=== PATIENT | male | born 1960 | race Caucasian/White ===

== ENCOUNTER 2016-11-06 11:00 | Inpatient (IN) ==
[2016-11-06] MEDS ORDERED: 0.9 % SODIUM CHLORIDE 1,000 ML IV SCH ×2 (11:15→11:30)
[2016-11-06] MEDS ORDERED: ASPIRIN 81 MG TAB.CHEW CHEWED ONE (11:17)
[2016-11-06] MEDS ORDERED: 0.9 % SODIUM CHLORIDE 500 ML IV ONE (11:21)
--- NOTE | 2016-11-06 11:29 | Emergency Department Note ---
General Adult HPI - General Chief complaint: Alcohol Stated complaint: shakiness, left sided chest pain Time Seen by Provider: 11/06/16 11:24 Source: patient, EMS Mode of arrival: ambulatory Limitations: no limitations - History of Present Illness HPI Narrative: This patient was taken to long-term last night at 830 for alcohol related problems and had a blood alcohol of 294 at that time. At 9 this morning he started complaining of left-sided chest pain and was pretty shaky. He has had alcohol withdrawal seizures in the past. Pain is left-sided without radiation without nausea shortness of breath or diaphoresis. No history of cardiac disease. Onset (ago): hour(s) Location: chest Radiation: non-radiation Severity: moderate Quality: aching Improves with: none Worsens with: none Associated symptoms: Reports: denies other symptoms Treatments Prior to Arrival: none - Related Data Home Medications Medication Instructions Recorded Confirmed Cyclobenzaprine [Flexeril] 10 mg PO DAILY 06/27/15 11/27/15 Furosemide [Lasix] 40 mg PO DAILY 06/27/15 11/27/15 Sertraline [Zoloft] 1 tab PO DAILY 06/27/15 11/27/15 traZODone HCL [Desyrel] 50 mg PO ONCE 06/27/15 11/27/15 Albuterol Sulfate [Ventolin] 2 puff INH Q4HP PRN 10/08/15 11/27/15 Spironolactone [Aldactone] 25 mg PO DAILY 10/08/15 11/27/15 Amitriptyline [Elavil] 25 mg PO HS 11/27/15 11/27/15 HYDROcodone/APAP 10/325MG [Hume 1 - 2 tab PO Q4H PRN 11/27/15 11/27/15 10/325Mg] lamoTRIgine [LaMICtal] 25 mg PO DAILY 11/27/15 11/27/15 risperiDONE [Risperidone] 1 mg PO HS 11/27/15 11/27/15 Allergies Allergy/AdvReac Type Severity Reaction Status Date / Time Bee Pollen AdvReac Intermediate Hives Verified 10/04/16 18:53 Review of Systems Constitutional: Denies: fever, chills Eyes: Denies: eye pain ENT ED: Denies: ear pain Cardiovascular: Reports: chest pain. Denies: palpitations Respiratory: Denies: cough, dyspnea Gastrointestinal: Denies: abdominal pain, nausea, vomiting Genitourinary: Denies: urgency Musculoskeletal: Denies: back pain Integumentary: Denies: rash Neurological: Denies: headache Past Medical History - Past Medical History [facility] [place] Narrative: Medical History (Last Updated 10/30/16 @ 14:24 by [employer]) Acute anxiety (Acute) Alcohol intoxication (Acute) Alcohol withdrawal seizure (Acute) Depression (Acute) Lower extremity edema (Acute) Medical clearance for incarceration (Acute) Situational anxiety (Acute) Medical history: Reports: hypertension, other (chronic pain, lower extremity edema, alcohol withdrawal seizure) Surgical history ED: Reports: orthopedic, other (2 x back surgery) Psychiatric history: Reports: anxiety, bipolar, depression - Social History Alcohol use: Reports: Heavy Drug use: Reports: none Physical Exam - General Limitations: no limitations General appearance: anxious - Head Head exam: atraumatic, normocephalic - ENT ENT exam: normal exam - Neck Neck exam: Present: normal inspection - Chest Chest inspection: Present: normal inspection - Respiratory Respiratory exam: Present: normal lung sounds bilaterally - Cardiovascular Cardiovascular exam: Present: regular rate, normal rhythm, normal heart sounds - Abdominal Exam Abdominal exam: Present: soft. Absent: distention, tenderness - Neurological Exam Neurological exam: Present: alert - Psychiatric Psychiatric exam: Present: anxious - Skin Skin exam: Present: warm, dry, intact Course Vital Signs Temperature 98.6 F 11/06/16 11:02 Pulse Rate 125 H 11/06/16 11:02 Respiratory Rate 22 11/06/16 11:02 Blood Pressure 185/103 11/06/16 11:02 Pulse Oximetry (%) 100 11/06/16 11:02 Temperature 98.6 F 11/06/16 11:02 Pulse Rate 119 H 11/06/16 14:41 Respiratory Rate 16 11/06/16 14:41 Blood Pressure 152/90 11/06/16 14:31 Pulse Oximetry (%) 97 11/06/16 14:41 Medical Decision Making - [facility] Narrative Medical decision making narrative: This patient's troponin was negative to 6 hours after the onset of his pain. He really seems to be having impending DTs. Discussed the case with Dr. Matamoros and he will be admitted to a telemetry bed. - Lab Data Lab results reviewed: Yes I reviewed the patient's lab results. Result diagrams: 11/06/16 11:19 11/06/16 11:19 Lab Results 11/06/16 11/06/16 11/06/16 Range/Units 11:19 11:19 11:19 WBC 6.4 (4.5-11.0) K/mcL RBC 3.79 L (4.50-5.90) M/mcL Hgb 12.6 L (13.5-16.5) g/dL Hct 37.6 L (41.0-55.0) % MCV 99.3 (80.0-100.0) fL MCH 33.4 (26.0-34.0) pg MCHC 33.6 (31.0-36.0) g/dL RDW 15.4 H (11.5-14.5) % Plt Count 201 (140-440) K/mcL MPV 7.7 (7.4-10.4) fL Gran % 77.2 (38.0-78.0) % Lymph % (Auto) 9.2 L (15.5-49.0) % [place] % (Auto) 13.2 H (1.0-12.0) % Eos % (Auto) 0.2 (0.0-7.0) % Baso % (Auto) 0.2 (0.0-2.0) % Gran # 4.9 (1.8-8.0) K/mcL Lymph # 0.6 L (1.5-4.8) K/mcL [place] # 0.8 (0.1-0.9) K/mcL Eos # 0 (0.0-0.7) K/mcL Baso # 0 (0.0-0.3) K/mcL Sodium 140 (133-145) mmol/L Potassium 4.4 (3.3-5.1) mmol/L Chloride 99 (96-108) mmol/L Carbon Dioxide 25 (22-30) mmol/L Anion Gap 16.0 (8-16) BUN 4 L (6-20) mg/dl Creatinine 0.7 (0.7-1.2) mg/dl GFR Calculation 105 Glucose 96 (70-105) mg/dL Calcium 9.1 (8.6-10.4) mg/dl Total Bilirubin 0.8 (0.0-1.0) mg/dL AST 108 H (0-37) U/l ALT 71 H (0-40) U/l Alkaline Phosphatase 77 (39-117) U/L Troponin T (0-0.03) ng/ml Total Protein 6.9 (5.9-8.4) gm/dL Albumin 4.3 (3.2-5.2) gm/dL Globulin 2.6 (2.2-3.7) gm/dL Albumin/Globulin Ratio 1.7 (1.0-2.3) Ethyl Alcohol < 0.010 (<0.010) gm/dl 11/06/16 11/06/16 Range/Units 11:19 14:05 WBC (4.5-11.0) K/mcL RBC (4.50-5.90) M/mcL Hgb (13.5-16.5) g/dL Hct (41.0-55.0) % MCV (80.0-100.0) fL MCH (26.0-34.0) pg MCHC (31.0-36.0) g/dL RDW (11.5-14.5) % Plt Count (140-440) K/mcL MPV (7.4-10.4) fL Gran % (38.0-78.0) % Lymph % (Auto) (15.5-49.0) % [place] % (Auto) (1.0-12.0) % Eos % (Auto) (0.0-7.0) % Baso % (Auto) (0.0-2.0) % Gran # (1.8-8.0) K/mcL Lymph # (1.5-4.8) K/mcL [place] # (0.1-0.9) K/mcL Eos # (0.0-0.7) K/mcL Baso # (0.0-0.3) K/mcL Sodium (133-145) mmol/L Potassium (3.3-5.1) mmol/L Chloride (96-108) mmol/L Carbon Dioxide (22-30) mmol/L Anion Gap (8-16) BUN (6-20) mg/dl Creatinine (0.7-1.2) mg/dl GFR Calculation Glucose (70-105) mg/dL Calcium (8.6-10.4) mg/dl Total Bilirubin (0.0-1.0) mg/dL AST (0-37) U/l ALT (0-40) U/l Alkaline Phosphatase (39-117) U/L Troponin T < 0.01 < 0.01 (0-0.03) ng/ml Total Protein (5.9-8.4) gm/dL Albumin (3.2-5.2) gm/dL Globulin (2.2-3.7) gm/dL Albumin/Globulin Ratio (1.0-2.3) Ethyl Alcohol (<0.010) gm/dl - Radiology Data Radiology results reviewed: Yes I reviewed the patient's radiology results. Disposition Clinical Impression: Alcohol withdrawal syndrome, Chest pain Disposition: Xfer As Outpt/Obs ([facility]) Condition: Fair Referrals: Meagan Pickering MD [Primary Care Provider] - Time of Disposition: 15:08
[2016-11-06] MEDS ORDERED: LORazepam 2 MG/ML VIAL IM ONE (11:30)
[2016-11-06] MEDS ORDERED: 0.9 % SODIUM CHLORIDE 1,000 ML IV ONE (11:38)
[2016-11-06] MEDS ORDERED: LORazepam 2 MG/ML VIAL IV ONE (11:39)
[2016-11-06 11:56] LABS: Basophils # (Auto) 0 K/mcL (0.0-0.3); Basophils % (Auto) 0.2 % (0.0-2.0); Eosinophils # (Auto) 0 K/mcL (0.0-0.7); Eosinophils % (Auto) 0.2 % (0.0-7.0); Granulocytes % (Auto) 77.2 % (38.0-78.0); Lymphocytes # (Auto) 0.6 K/mcL (1.5-4.8); Lymphocytes % (Auto) 9.2 % (15.5-49.0); Mean Cell Volume 99.3 fL (80.0-100.0); Mean Corpuscular HGB Conc 33.6 g/dL (31.0-36.0); Mean Corpuscular Hemoglobin 33.4 pg (26.0-34.0); Monocytes # (Auto) 0.8 K/mcL (0.1-0.9); Monocytes % (Auto) 13.2 % (1.0-12.0); Platelet Count 201 K/mcL (140-440); RBC 3.79 M/mcL (4.50-5.90); Red Cell Distribution Width 15.4 % (11.5-14.5)
--- NOTE | 2016-11-06 12:03 | XRay Report ---
CLINICAL INFORMATION: Chest pain COMPARISON: 06/27/2015 FINDINGS:The heart size, mediastinum and pulmonary vessels are unremarkable. The lungs are clear. There are no effusions. The bones and soft tissues are within normal limits. IMPRESSION: Normal chest. Interpreted and Authenticated by: Fabrizio Aguero 11/06/16
[2016-11-06 12:34] LABS: ALT/SGPT 71 U/l (0-40); Albumin 4.3 gm/dL (3.2-5.2); Albumin/Globulin Ratio 1.7 (1.0-2.3); Alkaline Phosphatase 77 U/L (39-117); Blood Urea Nitrogen 4 mg/dl (6-20)
--- NOTE | 2016-11-06 16:06 | Internal Med History&Physical ---
Medical - H&P: HPI Patient information: Note initiated : 11/06/16 at 4:02 pm Service Date, if different from initiated Date: [] Patient: Manjeet Angelo a 56 y/o M admitted on for shakiness, left sided chest pain. Chief Complaint: [] History of present illness: Mr. Angelo is a 56 year old male who comes in to the ER with left sided chest pain. The patient has h/o alcoholism, heavy drinker, drinks 12 pack a day and then a pint of whiskey. Drinks daily, and if does not drink goes in withdrawal, has h/ o withdrawal seizuers in the past. The patient has been to this ER 4 times in the last month for alcohol related issues. He was arrested last for etoh intoxication, likely DUI, This AM he started having chest pain on the left side, pain was moderate in nature, sharp, non radiating, worse with movement and stress, better with rest , The patient also had sweating, dry heaves and shortness of breath. he was therefore brought in for evaluation. In the ER he was noted to be tachycardic, CXR neg, Trop x 2 neg, ekg is negative , he was shaky and noted to be in early DT, Hospitalist was therefore called in for admission for DT given h/o DT seizures. The patient on questioning noted that he may have fallen and did indeed have a burise on the left arm as well as some bruse on the left side of the chest wall which seems to be the source of his pain. X ray does not report any Rib fracture. patient will be admitted to the hospital for alcohol withdrawal, given that he is incarcerated and high risk of going to DT All systems: reviewed and no additional remarkable complaints except as stated Review of systems: CONSTITUTIONAL: No weight loss, fever, chills, weakness or fatigue. HEENT: Eyes: No visual loss, blurred vision, double vision or yellow sclerae. Ears, Nose, Throat: No hearing loss, sneezing, congestion, runny nose or sore throat. SKIN: No rash or itching. CARDIOVASCULAR: present chest pain,NO chest pressure . No palpitations or edema. (usually does have chr edema) RESPIRATORY: chr cough, sob present, no hemotpytis, GASTROINTESTINAL: Present nausea, No vomiting or diarrhea or constipation. No abdominal pain or blood in stools No Becky. GENITOURINARY: Denies Burning on urination. Blood in urine, or foul smelling urine NEUROLOGICAL: No headache, dizziness, syncope, paralysis, (tremors present), numbness or tingling in the extremities. No change in bowel or bladder control. MUSCULOSKELETAL: No muscle, joint pain or stiffness. Present chr back pain HEMATOLOGIC: No bleeding or bruising. No enlarged nodes PSYCHIATRIC: No depression or anxiety. ENDOCRINOLOGIC: No reports of sweating, cold or heat intolerance. No polyuria or polydipsia. ALLERGIES: No hives, eczema or rhinitis. Skin: No rash, no jaundice, cyanosis or pallor. Skin: bruise 4x6 cms on the left arm, and on the irregular bruise on the left chest wall. Medical - H&P: PMH Medical history: Medical History (Last Updated 11/06/16 @ 15:09 by Dylan Corbett MD) Lower extremity edema (Acute) Situational anxiety (Acute) Depression (Acute) Acute anxiety (Acute) Alcohol intoxication (Acute) Alcohol withdrawal seizure (Acute) Medical clearance for incarceration (Acute) Surgical history: back surgery Pertinent family history: Mother with Etoh issues no h/o cad, cva or MO reported. Social history: drinks eoth, heavy smoker thc user denies other substances. Medical - H&P: Meds Home Medications Medication Instructions Recorded Confirmed Type Furosemide [Lasix] 40 mg PO DAILY 06/27/15 11/27/15 History Albuterol Sulfate [Ventolin] 2 puff INH Q4HP PRN 10/08/15 11/27/15 History Spironolactone [Aldactone] 25 mg PO DAILY 10/08/15 11/06/16 History HYDROcodone/APAP 10/325MG [Amalia 1 - 2 tab PO Q4H PRN 11/27/15 11/27/15 History 10/325Mg] Allergies Allergy/AdvReac Type Severity Reaction Status Date / Time Bee Pollen AdvReac Intermediate Hives Verified 10/04/16 18:53 Medical - H&P: Exam - Constitutional Vitals: Temp Pulse Resp BP Pulse Ox 98.6 F 121 H 14 173/108 98 11/06/16 11:02 11/06/16 15:31 11/06/16 15:31 11/06/16 15:31 11/06/16 15:31 Exam: GENERAL: The patient is a well-developed, well-nourished in no apparent distress. Is alert and oriented x3. appears older than stated age VITAL SIGNS: Reviewed and as noted elsewhere. HEENT: Head is normocephalic and atraumatic. Extraocular muscles are intact. Pupils are equal, round, and reactive to light. Nares appeared normal. Mouth appears any without lesions. Mucous membranes are moist. NECK: Normal to inspection, Supple, No lymphadenopathy or thyromegaly. LUNGS: Air entry equal on both sides, no wheezing, crackles or rhonchi noted. No accessory muscles of respiration HEART: tachycardic rate, and rhythm normal, S1 and S2 heard, no Gallop, S3 or Rub Noted, No Gross murmur heard. Chest wall: burise noted irregular diffuse on left side over precordium, tender to palpation. ABDOMEN: Soft, nontender, and nondistended. Positive bowel sounds. No hepatosplenomegaly was noted. EXTREMITIES: No cyanosis, clubbing, rash, lesions or edema. NEUROLOGIC: Cranial nerves II through XII are grossly intact. Motor and Sensory System Grossly Intact PSYCHIATRIC: Normal affect, Normal Mood. Appropriate Behavior. SKIN: No ulceration or wounds noted, No jaundice, No rash noted. LEft arm bruise noted. Medical - H&P: Reslt - Labs CBC & Chem 7: 11/06/16 11:19 11/06/16 11:19 Labs: Short CBC 11/06/16 Range/Units 11:19 WBC 6.4 (4.5-11.0) K/mcL Hgb 12.6 L (13.5-16.5) g/dL Hct 37.6 L (41.0-55.0) % Plt Count 201 (140-440) K/mcL BMP 11/06/16 11:19 Sodium 140 Potassium 4.4 Chloride 99 Carbon Dioxide 25 BUN 4 L Creatinine 0.7 Glucose 96 Calcium 9.1 Cardiac Enzymes 11/06/16 11/06/16 Range/Units 11:19 14:05 Troponin T < 0.01 < 0.01 (0-0.03) ng/ml Liver Function 11/06/16 Range/Units 11:19 Total Bilirubin 0.8 (0.0-1.0) mg/dL AST 108 H (0-37) U/l ALT 71 H (0-40) U/l Alkaline Phosphatase 77 (39-117) U/L Albumin 4.3 (3.2-5.2) gm/dL Medical - H&P: A/P - Narrative A/P Narrative: a/p Alcohol withdrawal: Given pt is incarcerated and high risk of DT, admit to hospital. CIWA protocol, banana today, IV fluids, ativan prn, IV thiamine, MV and folic acid. Monitor on telemetery. fall and seizure risk Chest pain: EKG trop, cXR neg, h/o trauma with obvious burise, and tenderness to palpation, no need for further workup, conservative management. Chr edema: Resume home meds' DVT hep sq Diet Regular Code full
[2016-11-06] MEDS ORDERED: ONDANSETRON 4 MG/2 ML VIAL IV PRN (16:28)
[2016-11-06] MEDS ORDERED: PROMETHAZINE 25 MG/ML VIAL IV PRN (16:28)
[2016-11-06] MEDS ORDERED: HYDROcodone/APAP 5/325MG TABLET PO PRN (16:28)
[2016-11-06] MEDS ORDERED: HALOPERIDOL LACTATE 5 MG/ML VIAL IM PRN (16:28)
[2016-11-06] MEDS ORDERED: IPRATROPIUM/ALBUTEROL 3 ML AMPUL.NEB NEB PRN (16:28)
[2016-11-06] MEDS ORDERED: MAGNESIUM HYDROXIDE 30 ML ORAL.SUSP PO PRN (16:28)
[2016-11-06] MEDS ORDERED: DEXTROSE 5%-1/2NS W/10MEQ KCL 1,000 ML IV SCH (16:28)
[2016-11-06] MEDS ORDERED: NALOXONE HCL 0.4 MG/ML VIAL IV PRN (16:28)
[2016-11-06] MEDS: cloNIDine HCL 0.1 MG TABLET PO PRN (16:54)
[2016-11-06] MEDS ORDERED: POTASSIUM CHLORIDE 20 MEQ, MAGNESIUM SULFATE 16.24 MEQ, THIAMINE 100 MG, MVI, ADULT NO.... IV SCH (17:00)
[2016-11-06] MEDS: METOPROLOL TARTRATE 5 MG/5 ML VIAL IV SCH ×3 (18:07→19:56)
[2016-11-06 18:46] LABS: Amphetamine Screen,Urine NONE DETECTED (NONDETECTED); Benzodiazepines Screen,Urine SUSPECT POSITIVE (NONDETECTED); Cocaine Screen,Urine NONE DETECTED (NONDETECTED); Opiate Screen,Urine NONE DETECTED (NONDETECTED)
[2016-11-06] MEDS: 0.9 % SODIUM CHLORIDE 10 ML SYRINGE IV SCH (20:58)
[2016-11-06] MEDS: FAMOTIDINE/PF 20 MG/2 ML VIAL IV SCH (20:58)
[2016-11-06] MEDS: HEPARIN 5,000 UNIT/ML VIAL SQ SCH (20:58)
[2016-11-06] MEDS: LORazepam 2 MG/ML VIAL IV PRN (21:03)
[2016-11-07] MEDS: DEXTROSE 5%-1/2NS W/10MEQ KCL 1,000 ML IV SCH ×2 (01:36→13:49)
[2016-11-07] MEDS: LORazepam 2 MG/ML VIAL IV PRN ×5 (04:10→21:18)
[2016-11-07] MEDS: 0.9 % SODIUM CHLORIDE 10 ML SYRINGE IV SCH ×3 (05:32→21:20)
[2016-11-07 06:08] LABS: Basophils # (Auto) 0 K/mcL (0.0-0.3); Basophils % (Auto) 0.4 % (0.0-2.0); Eosinophils # (Auto) 0.1 K/mcL (0.0-0.7); Eosinophils % (Auto) 1.9 % (0.0-7.0); Granulocytes % (Auto) 65.4 % (38.0-78.0); Lymphocytes % (Auto) 19.8 % (15.5-49.0); Mean Cell Volume 99.8 fL (80.0-100.0); Mean Corpuscular HGB Conc 33.8 g/dL (31.0-36.0); Mean Corpuscular Hemoglobin 33.7 pg (26.0-34.0); Monocytes # (Auto) 0.6 K/mcL (0.1-0.9); Monocytes % (Auto) 12.5 % (1.0-12.0); Platelet Count 153 K/mcL (140-440); RBC 3.31 M/mcL (4.50-5.90); Red Cell Distribution Width 15.3 % (11.5-14.5)
[2016-11-07 06:27] LABS: ALT/SGPT 51 U/l (0-40); Albumin 3.6 gm/dL (3.2-5.2); Albumin/Globulin Ratio 1.7 (1.0-2.3); Alkaline Phosphatase 62 U/L (39-117); Bilirubin,Direct 0.2 mg/dL (0.0-0.3); Blood Urea Nitrogen 6 mg/dl (6-20); Gamma Glutamyl Transpeptidase 128 U/L (8-61); Magnesium 1.9 mg/dL (1.6-2.5); Uric Acid 3.8 mg/dL (2.5-8.0)
[2016-11-07] MEDS: SPIRONOLACTONE 25 MG TABLET PO SCH (09:08)
[2016-11-07] MEDS: FAMOTIDINE/PF 20 MG/2 ML VIAL IV SCH ×2 (09:09→21:21)
[2016-11-07] MEDS: FOLIC ACID 1 MG TABLET PO SCH (09:09)
[2016-11-07] MEDS: HEPARIN 5,000 UNIT/ML VIAL SQ SCH ×2 (09:09→21:21)
[2016-11-07] MEDS: NICOTINE 21 MG PATCH TOPICAL SCH (09:09)
[2016-11-07] MEDS: THIAMINE 100 MG in 0.9 % SODIUM CHLORIDE 50 ML IV SCH (09:10)
[2016-11-07] MEDS: MULTIVIT,THER IRON,CA,FA & MIN 1 TABLET PO SCH (09:10)
[2016-11-07] MEDS: FUROSEMIDE 40 MG TABLET PO SCH (09:10)
--- NOTE | 2016-11-07 11:59 | Internal Med Progress Note ---
Medical - PN: Subj Patient information: Note initiated : 11/07/16 at 11:57 am Service Date, if different from initiated Date: [] Patient: Manjeet Angelo 56 y/o M admitted on 11/06/16 for Shakiness, Lt Sided Chest Pain/Alcohol Withdrawal. Chief Complaint: [] Interval history: Mr. Angelo is a 56 year old male who comes in to the ER with left sided chest pain. The patient has h/o alcoholism, heavy drinker, drinks 12 pack a day and then a pint of whiskey. Drinks daily, and if does not drink goes in withdrawal, has h/ o withdrawal seizuers in the past. The patient has been to this ER 4 times in the last month for alcohol related issues. He was arrested last for etoh intoxication, likely DUI, This AM he started having chest pain on the left side, pain was moderate in nature, sharp, non radiating, worse with movement and stress, better with rest , The patient also had sweating, dry heaves and shortness of breath. he was therefore brought in for evaluation. In the ER he was noted to be tachycardic, CXR neg, Trop x 2 neg, ekg is negative , he was shaky and noted to be in early DT, Hospitalist was therefore called in for admission for DT given h/o DT seizures. The patient on questioning noted that he may have fallen and did indeed have a burise on the left arm as well as some bruse on the left side of the chest wall which seems to be the source of his pain. X ray does not report any Rib fracture. patient will be admitted to the hospital for alcohol withdrawal, given that he is incarcerated and high risk of going to DT 11/07 Pt seen examined, doing much better, no new concerns, CIWA still > 10, needing ativan, HR much better, tremors much better, no longer incarcerated. will continue to monitor. Pt not keen on drinking again. Pertinent ROS: Denies headache, dizziness Denies chest pain, palpitations (chest soreness present) Denies cough or shortness of breath. (chr smokers cough present) Denies abdominal pain, nausea or vomiting. - Constitutional Vitals: Vital Signs Temp Pulse Resp BP Pulse Ox 98.8 F 103 H 20 146/84 93 11/07/16 08:00 11/06/16 20:00 11/07/16 08:00 11/07/16 08:00 11/07/16 08:00 Period Temp Pulse Resp BP Sys/Romero Pulse Ox Last 24 Hr 98.5 F-99.5 F 102-119 16-22 111-177/67-136 93-99 Intake and Output 11/06/16 11/07/16 11/07/16 21:59 05:59 13:59 Intake Total 600 / 1600 1225 / 1225 120 / 120 Output Total 1050 / 1050 700 / 700 2300 / 2300 Balance -450 / 550 525 / 525 -2180 / -2180 Weight 159 lb 3.2 oz Intake & Output: Intake & Output 11/06/16 11/07/16 11/07/16 21:59 05:59 13:59 Intake Total 600 / 1600 1225 / 1225 120 / 120 Output Total 1050 / 1050 700 / 700 2300 / 2300 Balance -450 / 550 525 / 525 -2180 / -2180 Weight 159 lb 3.2 oz Intake: IV 1025 / 1025 Potassium Chloride 20 Meq 1025 / 1025 Magnesium Sulfate 16.24 Meq Vitamin B1 100 mg Infuvite Adult 10 ml In Sodium Chloride 0.9% 1, 000 ml @ 125 mls/hr IV . Q8H12M [facility] Rx#:[id number] Oral 600 / 600 200 / 200 120 / 120 Output: Urine Catheter Amount 300 / 300 Void Amount 1050 / 1050 700 / 700 1600 / 1600 Stool 400 / 400 Other: Meal Dinner Breakfast Percent of Meal Consumed 75% 100% # Bowel Movements 1 1 # of times incontinent of 1 Bowels Exam: Constitutional; Afebrile, cooperative, alert, not in distress. Eyes- No icterus, , No periorbital swelling Ears- Ext ear normal, hearing normal to conversation. Neck- Midline trachea, supple Respiratory system: Air Entry equal on both sides, No crackles or wheezing, no rhonchi. CVS- Rate rhythm regular, S1,S2 heard, no gallop, no rub. Abdomen- Soft nontender abdomen, no organomegaly, no tenderness, no guarding or rigidity, FI[employer]GER- AOOx3, moving all extremities, no gross focal deficit noted. Medical - PN: Obj Da - Labs CBC & Chem 7: 11/07/16 03:54 11/07/16 03:54 Labs: Abnormal Lab Results 11/07/16 11/07/16 11/06/16 03:54 03:54 17:37 RBC 3.31 L Hgb 11.1 L Hct 33.0 L RDW 15.3 H [place] % (Auto) 12.5 H Lymph # 1.0 L Creatinine 0.6 L Calcium 8.4 L GGT 128 H AST 66 H ALT 51 H Total Protein 5.7 L Globulin 2.1 L U Benzodiazepines Scrn Suspect positive A Meds: Medications Acetaminophen (Tylenol) 650 mg PO Q6HP PRN PRN Reason: PAIN/FEVER > 101 Acetaminophen/Hydrocodone Bitart ([place] 5/325mg) 1 tab PO Q4HP PRN PRN Reason: Pain Albuterol/Ipratropium (Duoneb) 3 ml NEB Q6HRT PRN PRN Reason: Shortness Of Breath Or Wheezing Clonidine HCl (Catapres) 0.1 mg PO Q4HP PRN PRN Reason: Alcohol Withdrawal Last Admin: 11/06/16 16:54 Dose: 0.1 mg Famotidine (Pepcid) 20 mg IV Q12 [facility] Last Admin: 11/07/16 09:09 Dose: 20 mg Folic Acid (Folic Acid) 1 mg PO DAILY [facility] Last Admin: 11/07/16 09:09 Dose: 1 mg Furosemide (Lasix) 40 mg PO DAILY [facility] Last Admin: 11/07/16 09:10 Dose: 40 mg Haloperidol Lactate (Haldol) 0.5 mg IM Q2HP PRN PRN Reason: Alcohol Withdrawal Heparin Sodium (Porcine) (Heparin) 5,000 unit SQ Q12 [facility] Last Admin: 11/07/16 09:09 Dose: 5,000 unit Thiamine HCl 100 mg/ Sodium (Chloride) 51 mls @ 50 mls/hr IV DAILY [facility] Last Admin: 11/07/16 09:10 Dose: 50 mls/hr Potassium Chloride/Dextrose/Sod Cl (Dextrose 5%-1/2ns W/10meq Kcl) 1,000 mls @ 75 mls/hr IV .[id number] [facility] Last Admin: 11/07/16 01:36 Dose: 75 mls/hr Iron Carb/Multivit/[place]/Folic Acid (Multivitamin W/Minerals) 1 tab PO DAILY [facility] Last Admin: 11/07/16 09:10 Dose: 1 tab Lorazepam (Ativan) 1 mg IV Q4HP PRN; Protocol PRN Reason: Alcohol Withdrawal Last Admin: 11/07/16 09:08 Dose: 1 mg Magnesium Hydroxide (Milk Of Magnesia) 30 ml PO DAILYP PRN PRN Reason: Constipation Naloxone HCl (Narcan) 0.1 mg IV Q2MIN PRN PRN Reason: Opiate Reversal Nicotine (Nicoderm) 21 mg TOPICAL DAILY@1000 [facility] Last Admin: 11/07/16 09:09 Dose: 21 mg Ondansetron HCl (Zofran) 4 mg IV Q4HP PRN PRN Reason: Nausea And Vomiting Promethazine HCl (Phenergan) 12.5 mg IV Q6HP PRN PRN Reason: Nausea And Vomiting Sodium Chloride (Saline Flush) 10 ml IV Q8 [facility] Last Admin: 11/07/16 05:32 Dose: Not Given Spironolactone (Aldactone) 25 mg PO DAILY [facility] Last Admin: 11/07/16 09:08 Dose: 25 mg Medical - PN: A/P - Time Spent With Patient Total time spent is greater than 50% in coordination of care (as documented) at patient's floor/unit and/or counseling patient: - Narrative A/P Narrative: a/p Alcohol withdrawal: high risk for DT, h/o DT seizures, continue to monitor, ativan prn, IV thiamine, MV folic acid. fall and seizure precautions. PT eval , OT eval Chest pain: EKG trop, CXR neg, h/o trauma with obvious bruise, and tenderness to palpation, no need for further workup, conservative management. Chr edema: Resume home meds DVT hep sq Diet Regular Code full Medical - PN: Qual - VTE Deep Vein Thrombosis/Pulmonary Embolism Present on Admission: No
[2016-11-08] MEDS: DEXTROSE 5%-1/2NS W/10MEQ KCL 1,000 ML IV SCH ×2 (03:09→21:06)
[2016-11-08] MEDS: 0.9 % SODIUM CHLORIDE 10 ML SYRINGE IV SCH ×3 (04:59→21:56)
[2016-11-08 05:40] LABS: Basophils # (Auto) 0 K/mcL (0.0-0.3); Basophils % (Auto) 0.5 % (0.0-2.0); Eosinophils # (Auto) 0.2 K/mcL (0.0-0.7); Eosinophils % (Auto) 3.3 % (0.0-7.0); Granulocytes % (Auto) 59.6 % (38.0-78.0); Lymphocytes # (Auto) 1.5 K/mcL (1.5-4.8); Lymphocytes % (Auto) 28.1 % (15.5-49.0); Mean Cell Volume 99.5 fL (80.0-100.0); Mean Corpuscular Hemoglobin 33.8 pg (26.0-34.0); Monocytes # (Auto) 0.4 K/mcL (0.1-0.9); Monocytes % (Auto) 8.5 % (1.0-12.0); Platelet Count 157 K/mcL (140-440); RBC 3.58 M/mcL (4.50-5.90)
[2016-11-08 06:04] LABS: ALT/SGPT 61 U/l (0-40); Albumin 3.9 gm/dL (3.2-5.2); Albumin/Globulin Ratio 1.6 (1.0-2.3); Alkaline Phosphatase 64 U/L (39-117); Bilirubin,Direct 0.2 mg/dL (0.0-0.3); Blood Urea Nitrogen 9 mg/dl (6-20); Gamma Glutamyl Transpeptidase 129 U/L (8-61); Magnesium 1.4 mg/dL (1.6-2.5); Uric Acid 4.1 mg/dL (2.5-8.0)
[2016-11-08] MEDS: LORazepam 2 MG/ML VIAL IV PRN ×2 (07:17→21:58)
[2016-11-08] MEDS ORDERED: MAGNESIUM SULFATE 2 GM/50 ML BAG IV ONE (07:30)
[2016-11-08] MEDS: FUROSEMIDE 40 MG TABLET PO SCH (09:04)
[2016-11-08] MEDS: SPIRONOLACTONE 25 MG TABLET PO SCH (09:04)
[2016-11-08] MEDS: FOLIC ACID 1 MG TABLET PO SCH (09:04)
[2016-11-08] MEDS: NICOTINE 21 MG PATCH TOPICAL SCH (09:04)
[2016-11-08] MEDS: FAMOTIDINE/PF 20 MG/2 ML VIAL IV SCH ×2 (09:04→21:06)
[2016-11-08] MEDS: MULTIVIT,THER IRON,CA,FA & MIN 1 TABLET PO SCH (09:04)
[2016-11-08] MEDS: HEPARIN 5,000 UNIT/ML VIAL SQ SCH ×2 (09:04→21:06)
[2016-11-08] MEDS: THIAMINE 100 MG in 0.9 % SODIUM CHLORIDE 50 ML IV SCH (09:05)
--- NOTE | 2016-11-08 10:09 | Internal Med Progress Note ---
Medical - PN: Subj Patient information: Note initiated : 11/08/16 at 10:06 am Service Date, if different from initiated Date: [] Patient: Manjeet Angelo a 56 y/o M admitted on 11/06/16 for Shakiness, Lt Sided Chest Pain/Alcohol Withdrawal. Chief Complaint: [] Interval history: Mr. Angelo is a 56 year old male who comes in to the ER with left sided chest pain. The patient has h/o alcoholism, heavy drinker, drinks 12 pack a day and then a pint of whiskey. Drinks daily, and if does not drink goes in withdrawal, has h/ o withdrawal seizuers in the past. The patient has been to this ER 4 times in the last month for alcohol related issues. He was arrested last for etoh intoxication, likely DUI, This AM he started having chest pain on the left side, pain was moderate in nature, sharp, non radiating, worse with movement and stress, better with rest , The patient also had sweating, dry heaves and shortness of breath. he was therefore brought in for evaluation. In the ER he was noted to be tachycardic, CXR neg, Trop x 2 neg, ekg is negative , he was shaky and noted to be in early DT, Hospitalist was therefore called in for admission for DT given h/o DT seizures. The patient on questioning noted that he may have fallen and did indeed have a burise on the left arm as well as some bruse on the left side of the chest wall which seems to be the source of his pain. X ray does not report any Rib fracture. patient will be admitted to the hospital for alcohol withdrawal, given that he is incarcerated and high risk of going to DT 11/07 Pt seen examined, doing much better, no new concerns, CIWA still > 10, needing ativan, HR much better, tremors much better, no longer incarcerated. will continue to monitor. Pt not keen on drinking again. 11/08: Pt seen examined, did not sleep well, His CIWA is worse today am around 17 , today is day 3 without etoh, and we should start to see improvement by the end of the day, He has good appetitite, and some tremors, but otherwise st able. MG low ,will replace. Pertinent ROS: Present headaches, chr, No syncope, dizziness. Denies chest pain, palpitations (chest soreness present) Denies cough or shortness of breath Denies abdominal pain, nausea or vomiting. - Constitutional Vitals: Vital Signs Temp Pulse Resp BP Pulse Ox 98.3 F 98 H 18 149/94 95 11/08/16 06:57 11/07/16 20:00 11/08/16 06:57 11/08/16 06:57 11/08/16 06:57 Period Temp Pulse Resp BP Sys/Romero Pulse Ox Last 24 Hr 98.0 F-99.1 F 88-98 16-18 105-153/72-94 95-100 Intake and Output 11/07/16 11/08/16 11/08/16 21:59 05:59 13:59 Intake Total 351 / 351 1300 / 1300 Output Total 400 / 400 1800 / 1800 350 / 350 Balance -49 / -49 -500 / -500 -350 / -350 Weight 159 lb Intake & Output: Intake & Output 11/07/16 11/08/16 11/08/16 21:59 05:59 13:59 Intake Total 351 / 351 1300 / 1300 Output Total 400 / 400 1800 / 1800 350 / 350 Balance -49 / -49 -500 / -500 -350 / -350 Weight 159 lb Intake: IV 51 / 51 1000 / 1000 Dextrose 5%-1/2Ns W/10Meq 1000 / 1000 KCl 1,000 ml @ 75 mls/hr IV .[id number] [facility] Rx#: [id number] Vitamin B1 100 mg In 51 / 51 Sodium Chloride 0.9% 50 ml @ 50 mls/hr IV DAILY [facility] Rx#:[id number] Oral 300 / 300 300 / 300 Output: Void Amount 400 / 400 1800 / 1800 350 / 350 Other: # Voids 1 # Bowel Movements 1 Exam: Constitutional; Afebrile, cooperative, alert, not in distress. Eyes- No icterus, , No periorbital swelling Ears- Ext ear normal, hearing normal to conversation. Neck- Midline trachea, supple Respiratory system: Air Entry equal on both sides, No crackles or wheezing, no rhonchi. CVS- Rate rhythm regular, S1,S2 heard, no gallop, no rub. Abdomen- Soft nontender abdomen, no organomegaly, no tenderness, no guarding or rigidity, SHRIMP CLEANER- AOOx2, moving all extremities, no gross focal deficit noted. naida tremors present, mild hand tremors present. Medical - PN: Obj Da - Labs CBC & Chem 7: 11/08/16 04:30 11/08/16 04:30 Labs: Abnormal Lab Results 11/08/16 11/08/16 11/07/16 04:30 04:30 03:54 RBC 3.58 L Hgb 12.1 L Hct 35.6 L RDW 15.0 H Yell % (Auto) Lymph # Creatinine 0.6 L Calcium 8.4 L Magnesium 1.4 L GGT 129 H 128 H AST 84 H 66 H ALT 61 H 51 H Lactate Dehydrogenase 256 H Total Protein 5.7 L Globulin 2.1 L U Benzodiazepines Scrn 11/07/16 11/06/16 03:54 17:37 RBC 3.31 L Hgb 11.1 L Hct 33.0 L RDW 15.3 H Yell % (Auto) 12.5 H Lymph # 1.0 L Creatinine Calcium Magnesium GGT AST ALT Lactate Dehydrogenase Total Protein Globulin U Benzodiazepines Scrn Suspect positive A Meds: Medications Acetaminophen (Tylenol) 650 mg PO Q6HP PRN PRN Reason: PAIN/FEVER > 101 Acetaminophen/Hydrocodone Bitart ([place] 5/325mg) 1 tab PO Q4HP PRN PRN Reason: Pain Last Admin: 11/07/16 14:45 Dose: 1 tab Albuterol/Ipratropium (Duoneb) 3 ml NEB Q6HRT PRN PRN Reason: Shortness Of Breath Or Wheezing Clonidine HCl (Catapres) 0.1 mg PO Q4HP PRN PRN Reason: Alcohol Withdrawal Last Admin: 11/06/16 16:54 Dose: 0.1 mg Famotidine (Pepcid) 20 mg IV Q12 [facility] Last Admin: 11/08/16 09:04 Dose: 20 mg Folic Acid (Folic Acid) 1 mg PO DAILY [facility] Last Admin: 11/08/16 09:04 Dose: 1 mg Furosemide (Lasix) 40 mg PO DAILY [facility] Last Admin: 11/08/16 09:04 Dose: 40 mg Haloperidol Lactate (Haldol) 0.5 mg IM Q2HP PRN PRN Reason: Alcohol Withdrawal Heparin Sodium (Porcine) (Heparin) 5,000 unit SQ Q12 [facility] Last Admin: 11/08/16 09:04 Dose: 5,000 unit Thiamine HCl 100 mg/ Sodium (Chloride) 51 mls @ 50 mls/hr IV DAILY [facility] Last Admin: 11/08/16 09:05 Dose: 50 mls/hr Potassium Chloride/Dextrose/Sod Cl (Dextrose 5%-1/2ns W/10meq Kcl) 1,000 mls @ 75 mls/hr IV .[id number] [facility] Last Admin: 11/08/16 03:09 Dose: 75 mls/hr Iron Carb/Multivit/[place]/Folic Acid (Multivitamin W/Minerals) 1 tab PO DAILY [facility] Last Admin: 11/08/16 09:04 Dose: 1 tab Lorazepam (Ativan) 1 mg IV Q4HP PRN; Protocol PRN Reason: Alcohol Withdrawal Last Admin: 11/08/16 07:17 Dose: 1 mg Magnesium Hydroxide (Milk Of Magnesia) 30 ml PO DAILYP PRN PRN Reason: Constipation Naloxone HCl (Narcan) 0.1 mg IV Q2MIN PRN PRN Reason: Opiate Reversal Nicotine (Nicoderm) 21 mg TOPICAL DAILY@1000 [facility] Last Admin: 11/08/16 09:04 Dose: 21 mg Ondansetron HCl (Zofran) 4 mg IV Q4HP PRN PRN Reason: Nausea And Vomiting Promethazine HCl (Phenergan) 12.5 mg IV Q6HP PRN PRN Reason: Nausea And Vomiting Sodium Chloride (Saline Flush) 10 ml IV Q8 [facility] Last Admin: 11/08/16 04:59 Dose: Not Given Spironolactone (Aldactone) 25 mg PO DAILY [facility] Last Admin: 11/08/16 09:04 Dose: 25 mg Medical - PN: A/P - Time Spent With Patient Total time spent is greater than 50% in coordination of care (as documented) at patient's floor/unit and/or counseling patient: - Narrative A/P Narrative: a/p Alcohol withdrawal: high risk for DT, h/o DT seizures, continue to monitor, ativan prn, IV thiamine, MV folic acid. fall and seizure precautions, appreciate OT/PT eval. CIWA score 17 this am, remains on ativan. Chest pain: EKG trop, CXR neg, h/o trauma with obvious bruise, and tenderness to palpation, no need for further workup, conservative management. Chr edema: on home diuretics Hypomagnesemia: Replace. DVT hep sq Diet Regular Code full Medical - PN: Qual - VTE Deep Vein Thrombosis/Pulmonary Embolism Present on Admission: No
[2016-11-08] MEDS ORDERED: 0.9 % SODIUM CHLORIDE 1,000 ML IV ONE (10:49)
[2016-11-08] MEDS: ACETAMINOPHEN 325 MG TABLET PO PRN (19:00)
[2016-11-08] MEDS: cloNIDine HCL 0.1 MG TABLET PO PRN (19:01)
[2016-11-09 05:50] LABS: Basophils # (Auto) 0.1 K/mcL (0.0-0.3); Basophils % (Auto) 0.9 % (0.0-2.0); Eosinophils # (Auto) 0.2 K/mcL (0.0-0.7); Eosinophils % (Auto) 2.6 % (0.0-7.0); Granulocytes % (Auto) 68.3 % (38.0-78.0); Lymphocytes # (Auto) 1.1 K/mcL (1.5-4.8); Lymphocytes % (Auto) 18.8 % (15.5-49.0); Mean Cell Volume 99.3 fL (80.0-100.0); Mean Corpuscular HGB Conc 34.2 g/dL (31.0-36.0); Monocytes # (Auto) 0.6 K/mcL (0.1-0.9); Monocytes % (Auto) 9.4 % (1.0-12.0); Platelet Count 134 K/mcL (140-440); RBC 3.35 M/mcL (4.50-5.90); Red Cell Distribution Width 14.4 % (11.5-14.5)
[2016-11-09 06:09] LABS: ALT/SGPT 50 U/l (0-40); Albumin 3.7 gm/dL (3.2-5.2); Albumin/Globulin Ratio 1.6 (1.0-2.3); Alkaline Phosphatase 59 U/L (39-117); Bilirubin,Direct < 0.2 mg/dL (0.0-0.3); Blood Urea Nitrogen 15 mg/dl (6-20); Gamma Glutamyl Transpeptidase 112 U/L (8-61); Magnesium 1.5 mg/dL (1.6-2.5); Uric Acid 4.2 mg/dL (2.5-8.0)
[2016-11-09] MEDS ORDERED: MAGNESIUM SULFATE 2 GM/50 ML BAG IV ONE (08:28)
[2016-11-09] MEDS: SPIRONOLACTONE 25 MG TABLET PO SCH (09:02)
[2016-11-09] MEDS: ACETAMINOPHEN 325 MG TABLET PO PRN ×2 (09:02→15:11)
[2016-11-09] MEDS: THIAMINE 100 MG in 0.9 % SODIUM CHLORIDE 50 ML IV SCH (09:02)
[2016-11-09] MEDS: HEPARIN 5,000 UNIT/ML VIAL SQ SCH ×2 (09:02→20:59)
[2016-11-09] MEDS: MULTIVIT,THER IRON,CA,FA & MIN 1 TABLET PO SCH (09:02)
[2016-11-09] MEDS: FAMOTIDINE/PF 20 MG/2 ML VIAL IV SCH ×2 (09:02→21:00)
[2016-11-09] MEDS: LORazepam 2 MG/ML VIAL IV PRN ×4 (09:13→21:57)
[2016-11-09] MEDS: NICOTINE 21 MG PATCH TOPICAL SCH (09:34)
[2016-11-09] MEDS: 0.9 % SODIUM CHLORIDE 10 ML SYRINGE IV SCH ×3 (10:40→21:00)
[2016-11-09] MEDS: FOLIC ACID 1 MG TABLET PO SCH (10:45)
[2016-11-09] MEDS: FUROSEMIDE 40 MG TABLET PO SCH (10:48)
--- NOTE | 2016-11-09 11:09 | Internal Med Progress Note ---
Medical - PN: Subj Patient information: Note initiated : 11/09/16 at 11:07 am Service Date, if different from initiated Date: [] Patient: Manjeet Angelo a 56 y/o M admitted on 11/06/16 for Shakiness, Lt Sided Chest Pain/Alcohol Withdrawal. Chief Complaint: [] Interval history: Mr. Angelo is a 56 year old male who comes in to the ER with left sided chest pain. The patient has h/o alcoholism, heavy drinker, drinks 12 pack a day and then a pint of whiskey. Drinks daily, and if does not drink goes in withdrawal, has h/ o withdrawal seizuers in the past. The patient has been to this ER 4 times in the last month for alcohol related issues. He was arrested last for etoh intoxication, likely DUI, This AM he started having chest pain on the left side, pain was moderate in nature, sharp, non radiating, worse with movement and stress, better with rest , The patient also had sweating, dry heaves and shortness of breath. he was therefore brought in for evaluation. In the ER he was noted to be tachycardic, CXR neg, Trop x 2 neg, ekg is negative , he was shaky and noted to be in early DT, Hospitalist was therefore called in for admission for DT given h/o DT seizures. The patient on questioning noted that he may have fallen and did indeed have a burise on the left arm as well as some bruse on the left side of the chest wall which seems to be the source of his pain. X ray does not report any Rib fracture. patient will be admitted to the hospital for alcohol withdrawal, given that he is incarcerated and high risk of going to DT 11/07 Pt seen examined, doing much better, no new concerns, CIWA still > 10, needing ativan, HR much better, tremors much better, no longer incarcerated. will continue to monitor. Pt not keen on drinking again. 11/08: Pt seen examined, did not sleep well, His CIWA is worse today am around 17 , today is day 3 without etoh, and we should start to see improvement by the end of the day, He has good appetitite, and some tremors, but otherwise st able. MG low ,will replace. 11/09: Pt seen examined, no acute overnight events, CIWA is tending down, but still has intermittent tremors, he is weak, overnight his score was 12-4-3, but was high again this AM at 7 and 9, He will be transferred to med surg floor, continue with conservative management, expect d/c to home vs rehab in AM Pt is tolerating po diet well and has no acute complaints. Mental status is better, Pertinent ROS: Denies headache, dizziness Denies chest pain, palpitations (chest soreness) Denies cough or shortness of breath Denies abdominal pain, nausea or vomiting. - Constitutional Vitals: Vital Signs Temp Pulse Resp BP Pulse Ox 97.8 F 81 20 137/78 97 11/09/16 09:02 11/09/16 08:00 11/09/16 08:00 11/09/16 03:32 11/09/16 08:00 Period Temp Pulse Resp BP Sys/Romero Pulse Ox Last 24 Hr 97.8 F-98.7 F 78-81 14-20 137-152/78-96 94-99 Intake and Output 11/08/16 11/09/16 11/09/16 21:59 05:59 13:59 Intake Total 1720 / 1720 661 / 661 Output Total 1075 / 1075 200 / 200 750 / 750 Balance 645 / 645 -200 / -200 -89 / -89 Weight 164 lb 8 oz Intake & Output: Intake & Output 11/08/16 11/09/16 11/09/16 21:59 05:59 13:59 Intake Total 1720 / 1720 661 / 661 Output Total 1075 / 1075 200 / 200 750 / 750 Balance 645 / 645 -200 / -200 -89 / -89 Weight 164 lb 8 oz Intake: IV 1000 / 1000 101 / 101 Dextrose 5%-1/2Ns W/10Meq 1000 / 1000 KCl 1,000 ml @ 75 mls/hr IV .[id number] [facility] Rx#: [id number] Vitamin B1 100 mg In 51 / 51 Sodium Chloride 0.9% 50 ml @ 50 mls/hr IV DAILY [facility] Rx#:[id number] Oral 720 / 720 560 / 560 Output: Void Amount 825 / 825 200 / 200 750 / 750 Urine/Stool Mix 250 / 250 Other: Meal Dinner Breakfast Percent of Meal Consumed 100% 75% Feeding Ability Independent # Voids 1 1 # Bowel Movements 1 Exam: Constitutional; Afebrile, cooperative, alert, not in distress. Eyes- No icterus, , No periorbital swelling Ears- Ext ear normal, hearing normal to conversation. Neck- Midline trachea, supple Respiratory system: Air Entry equal on both sides, No crackles or wheezing, no rhonchi. CVS- Rate rhythm regular, S1,S2 heard, no gallop, no rub. Abdomen- Soft nontender abdomen, no organomegaly, no tenderness, no guarding or rigidity, BABYSITTER- AOOx3, moving all extremities, no gross focal deficit noted. (mild tremors present) Medical - PN: Obj Da - Labs CBC & Chem 7: 11/09/16 04:22 11/09/16 04:22 Labs: Abnormal Lab Results 11/09/16 11/09/16 11/08/16 04:22 04:22 04:30 RBC 3.35 L Hgb 11.4 L Hct 33.3 L RDW Plt Count 134 L [place] % (Auto) Lymph # 1.1 L Potassium 3.2 L Creatinine Calcium 8.5 L Magnesium 1.5 L 1.4 L GGT 112 H 129 H AST 51 H 84 H ALT 50 H 61 H Lactate Dehydrogenase 256 H Total Protein Globulin U Benzodiazepines Scrn 11/08/16 11/07/16 11/07/16 04:30 03:54 03:54 RBC 3.58 L 3.31 L Hgb 12.1 L 11.1 L Hct 35.6 L 33.0 L RDW 15.0 H 15.3 H Plt Count [place] % (Auto) 12.5 H Lymph # 1.0 L Potassium Creatinine 0.6 L Calcium 8.4 L Magnesium GGT 128 H AST 66 H ALT 51 H Lactate Dehydrogenase Total Protein 5.7 L Globulin 2.1 L U Benzodiazepines Scrn 11/06/16 17:37 RBC Hgb Hct RDW Plt Count [place] % (Auto) Lymph # Potassium Creatinine Calcium Magnesium GGT AST ALT Lactate Dehydrogenase Total Protein Globulin U Benzodiazepines Scrn Suspect positive A Meds: Medications Acetaminophen (Tylenol) 650 mg PO Q6HP PRN PRN Reason: PAIN/FEVER > 101 Last Admin: 11/09/16 09:02 Dose: 650 mg Acetaminophen/Hydrocodone Bitart ([place] 5/325mg) 1 tab PO Q4HP PRN PRN Reason: Pain Last Admin: 11/07/16 14:45 Dose: 1 tab Albuterol/Ipratropium (Duoneb) 3 ml NEB Q6HRT PRN PRN Reason: Shortness Of Breath Or Wheezing Clonidine HCl (Catapres) 0.1 mg PO Q4HP PRN PRN Reason: Alcohol Withdrawal Last Admin: 11/08/16 19:01 Dose: 0.1 mg Famotidine (Pepcid) 20 mg IV Q12 [facility] Last Admin: 11/09/16 09:02 Dose: 20 mg Folic Acid (Folic Acid) 1 mg PO DAILY [facility] Last Admin: 11/09/16 10:45 Dose: 1 mg Furosemide (Lasix) 40 mg PO DAILY [facility] Last Admin: 11/09/16 10:48 Dose: 40 mg Haloperidol Lactate (Haldol) 0.5 mg IM Q2HP PRN PRN Reason: Alcohol Withdrawal Heparin Sodium (Porcine) (Heparin) 5,000 unit SQ Q12 [facility] Last Admin: 11/09/16 09:02 Dose: 5,000 unit Thiamine HCl 100 mg/ Sodium (Chloride) 51 mls @ 50 mls/hr IV DAILY [facility] Last Infusion: 11/09/16 10:43 Dose: Infused Potassium Chloride/Dextrose/Sod Cl (Dextrose 5%-1/2ns W/10meq Kcl) 1,000 mls @ 75 mls/hr IV .[id number] [facility] Last Admin: 11/08/16 21:06 Dose: 75 mls/hr Iron Carb/Multivit/Upholstery Trimmer/Folic Acid (Multivitamin W/Minerals) 1 tab PO DAILY [facility] Last Admin: 11/09/16 09:02 Dose: 1 tab Lorazepam (Ativan) 1 mg IV Q4HP PRN; Protocol PRN Reason: Alcohol Withdrawal Last Admin: 11/09/16 09:13 Dose: 1 mg Magnesium Hydroxide (Milk Of Magnesia) 30 ml PO DAILYP PRN PRN Reason: Constipation Naloxone HCl (Narcan) 0.1 mg IV Q2MIN PRN PRN Reason: Opiate Reversal Nicotine (Nicoderm) 21 mg TOPICAL DAILY@1000 [facility] Last Admin: 11/09/16 09:34 Dose: 21 mg Ondansetron HCl (Zofran) 4 mg IV Q4HP PRN PRN Reason: Nausea And Vomiting Potassium Chloride (Klor-Con) 20 meq PO BIDCC [facility] Stop: 11/10/16 08:01 Promethazine HCl (Phenergan) 12.5 mg IV Q6HP PRN PRN Reason: Nausea And Vomiting Sodium Chloride (Saline Flush) 10 ml IV Q8 [facility] Last Admin: 11/09/16 10:40 Dose: Not Given Spironolactone (Aldactone) 25 mg PO DAILY [facility] Last Admin: 11/09/16 09:02 Dose: 25 mg Medical - PN: A/P - Time Spent With Patient Total time spent is greater than 50% in coordination of care (as documented) at patient's floor/unit and/or counseling patient: - Narrative A/P Narrative: a/p Alcohol withdrawal: high risk for DT, h/o DT seizures, continue to monitor, ativan prn, IV thiamine, MV folic acid. fall and seizure precautions, appreciate OT/PT eval. CIWA score 9 this AM, seems to improving , anticipate D/ c Tomorrow. Chest pain: EKG trop, CXR neg, h/o trauma with obvious bruise, and tenderness to palpation, no need for further workup, conservative management. Chr edema: on home diuretics Hypomagnesemia: Replace. DVT hep sq Diet Regular Code full Medical - PN: Qual - VTE Deep Vein Thrombosis/Pulmonary Embolism Present on Admission: No
[2016-11-09] MEDS: DEXTROSE 5%-1/2NS W/10MEQ KCL 1,000 ML IV SCH ×2 (12:06→15:44)
[2016-11-09] MEDS ORDERED: IPRATROPIUM/ALBUTEROL 3 ML AMPUL.NEB NEB PRN (15:33)
[2016-11-09] MEDS ORDERED: ACETAMINOPHEN 325 MG TABLET PO PRN (15:33)
[2016-11-09] MEDS ORDERED: PROMETHAZINE 25 MG/ML VIAL IV PRN (15:33)
[2016-11-09] MEDS ORDERED: NALOXONE HCL 0.4 MG/ML VIAL IV PRN (15:33)
[2016-11-09] MEDS ORDERED: HALOPERIDOL LACTATE 5 MG/ML VIAL IM PRN (15:33)
[2016-11-09] MEDS ORDERED: cloNIDine HCL 0.1 MG TABLET PO PRN (15:33)
[2016-11-09] MEDS ORDERED: MAGNESIUM HYDROXIDE 30 ML ORAL.SUSP PO PRN (15:33)
[2016-11-09] MEDS ORDERED: HYDROcodone/APAP 5/325MG TABLET PO PRN (15:33)
[2016-11-09] MEDS ORDERED: ONDANSETRON 4 MG/2 ML VIAL IV PRN (15:33)
[2016-11-09] MEDS: POTASSIUM CHLORIDE 20 MEQ PACKET PO SCH (17:05)
[2016-11-09] MEDS ORDERED: POTASSIUM CHLORIDE 20 MEQ PACKET PO SCH (17:30)
[2016-11-10] MEDS: DEXTROSE 5%-1/2NS W/10MEQ KCL 1,000 ML IV SCH ×2 (00:43→05:31)
[2016-11-10] MEDS: LORazepam 2 MG/ML VIAL IV PRN (04:45)
[2016-11-10] MEDS: 0.9 % SODIUM CHLORIDE 10 ML SYRINGE IV SCH (05:31)
[2016-11-10 06:38] LABS: Basophils # (Auto) 0.1 K/mcL (0.0-0.3); Basophils % (Auto) 0.9 % (0.0-2.0); Eosinophils # (Auto) 0.2 K/mcL (0.0-0.7); Granulocytes % (Auto) 66.5 % (38.0-78.0); Lymphocytes % (Auto) 16.1 % (15.5-49.0); Mean Cell Volume 99.4 fL (80.0-100.0); Mean Corpuscular HGB Conc 33.9 g/dL (31.0-36.0); Mean Corpuscular Hemoglobin 33.7 pg (26.0-34.0); Monocytes # (Auto) 0.8 K/mcL (0.1-0.9); Monocytes % (Auto) 13.5 % (1.0-12.0); Platelet Count 151 K/mcL (140-440); RBC 3.22 M/mcL (4.50-5.90); Red Cell Distribution Width 14.8 % (11.5-14.5)
[2016-11-10 07:03] LABS: ALT/SGPT 46 U/l (0-40); Albumin 3.5 gm/dL (3.2-5.2); Albumin/Globulin Ratio 1.5 (1.0-2.3); Alkaline Phosphatase 51 U/L (39-117); Bilirubin,Direct < 0.2 mg/dL (0.0-0.3); Blood Urea Nitrogen 16 mg/dl (6-20); Gamma Glutamyl Transpeptidase 101 U/L (8-61); Magnesium 1.6 mg/dL (1.6-2.5); Uric Acid 4.4 mg/dL (2.5-8.0)
[2016-11-10] MEDS: POTASSIUM CHLORIDE 20 MEQ PACKET PO SCH (08:28)
[2016-11-10] MEDS: HEPARIN 5,000 UNIT/ML VIAL SQ SCH (08:28)
[2016-11-10] MEDS: FAMOTIDINE/PF 20 MG/2 ML VIAL IV SCH (08:29)
[2016-11-10] MEDS ORDERED: FUROSEMIDE 40 MG TABLET PO SCH (09:00)
[2016-11-10] MEDS ORDERED: SPIRONOLACTONE 25 MG TABLET PO SCH (09:00)
[2016-11-10] MEDS ORDERED: THIAMINE 100 MG in 0.9 % SODIUM CHLORIDE 50 ML IV SCH (09:00)
[2016-11-10] MEDS ORDERED: MULTIVIT,THER IRON,CA,FA & MIN 1 TABLET PO SCH (09:00)
[2016-11-10] MEDS ORDERED: FOLIC ACID 1 MG TABLET PO SCH (09:00)
[2016-11-10] MEDS ORDERED: NICOTINE 21 MG PATCH TOPICAL SCH (10:00)
--- NOTE | 2016-11-10 14:41 | Discharge Summary ---
Medical - DS: Prov Patient information: Note initiated : 11/10/16 at 2:34 pm Service Date, if different from initiated Date: [] Patient: Manjeet Angelo 56 y/o M admitted on 11/06/16 for Shakiness, Lt Sided Chest Pain/Alcohol Withdrawal. Chief Complaint: [] Date of admission: 11/06/16 16:25 Discharge date: 11/10/16 Primary care physician: Meagan Pickering -telephone #[phone] Admitting clinician: Analy [place] Attending physician on discharge: Vianca Chadwick Medical - DS: Meds - Discharge Medications Prescriptions: LORazepam [Ativan] 0.5 mg PO Q4HP PRN #20 tablet PRN Reason: Alcohol Withdrawal Multivit,Ther Iron,Ca,FA & Min [Multivitamin W/Minerals] 1 tab PO DAILY #30 tablet Thiamine [Vitamin B1] 1 cap PO DAILY #30 vial Active and Home Medications: Home Medications Furosemide [Lasix] 40 mg PO DAILY 06/27/15 [History Confirmed 11/27/15 Last Taken Unknown] Albuterol Sulfate [Ventolin] 2 puff INH Q4HP PRN 10/08/15 [History Confirmed Last Taken Unknown] Spironolactone [Aldactone] 25 mg PO DAILY 10/08/15 [History Confirmed 11/06/16 Last Taken Unknown] HYDROcodone/APAP 10/325MG [[place] 10/325Mg] 1 - 2 tab PO Q4H PRN 11/27/15 [ History Confirmed 11/27/15 Last Taken Unknown] Medical - DS: Hosp Hospital course: Mr. Angelo is a 56 year old male November 06, 2016: History of present illness: Mr. Angelo is a 56 year old male who comes in to the ER with left sided chest pain. The patient has h/o alcoholism, heavy drinker, drinks 12 pack a day and then a pint of whiskey. Drinks daily, and if does not drink goes in withdrawal, has h/ o withdrawal seizuers in the past. The patient has been to this ER 4 times in the last month for alcohol related issues. He was arrested last nig for etoh intoxication, likely DUI, This AM he started having chest pain on the left side, pain was moderate in nature, sharp, non radiating, worse with movement and stress, better with rest , The patient also had sweating, dry heaves and shortness of breath. he was therefore brought in for evaluation. In the ER he was noted to be tachycardic, CXR neg, Trop x 2 neg, ekg is negative , he was shaky and noted to be in early DT, Hospitalist was therefore called in for admission for DT given h/o DT seizures. The patient on questioning noted that he may have fallen and did indeed have a burise on the left arm as well as some bruse on the left side of the chest wall which seems to be the source of his pain. X ray does not report any Rib fracture. patient will be admitted to the hospital for alcohol withdrawal, given that he is incarcerated and high risk of going to DT 11/07 Pt seen examined, doing much better, no new concerns, CIWA still > 10, needing ativan, HR much better, tremors much better, no longer incarcerated. will continue to monitor. Pt not keen on drinking again. 11/08: Pt seen examined, did not sleep well, His CIWA is worse today am around 17 , today is day 3 without etoh, and we should start to see improvement by the end of the day, He has good appetite, and some tremors, but otherwise st able. MG low ,will replace. 11/09: Pt seen examined, no acute overnight events, CIWA is tending down, but still has intermittent tremors, he is weak, overnight his score was 12-4-3, but was high again this AM at 7 and 9, He will be transferred to med surg floor, continue with conservative management, expect d/c to home vs rehab in AM Pt is tolerating po diet well and has no acute complaints. Mental status is better, November 10: sarah, the patient says he is feeling better overall, but still feels a bit shaky and weak when he tries to walk. He says he did quitdrinking for about 16 years, but started drinking again a few years ago after he got a divorce. He has been to Alcoholics Anonymous, and does have sponsors, but has not been good about calling them when he wants to drink. nursing staff believes that his trailer home was recently repossessed. He does not appear to have any family in the area nor a great support system. he did walk with physical therapy today, and says he did fine. He continues to have some soreness in his left rib cage and left armrelated to his fall. he does have chronic low back pain for which he takes hydrocodone 4 times a day. he otherwise denies subjective fever or chills, headaches or dizziness, chest pain or shortness of breath nausea or vomiting. He does occasionally have loose stools. He denies rectal bleeding or dysuria. on exam, he is a well-developed well-nourished man, who appears a bit older than his stated age. Neck is supple without obvious lymphadenopathy. Cardiac exam shows regular rate and rhythm. Lungs are clear to auscultation. Abdomen is soft and nontender. Extremities show no significant edema. no significant tremor is noted. He is alert and oriented. There are no obvious signs of hallucinations. assessment and plan: #1. Alcohol withdrawal: his patient was admitted for treatment for alcohol withdrawal due to increased seizure risk. He was monitored with the CIWA scale and treated with Ativan, thiamine, folate, multivitamins. He seems to be through the worst of his withdrawal, and should be safe now to continue withdrawing out of the hospital. he is encouraged to make contact withhis AA sponsors as well as with behavioral health, as he believesthey are awaiting him to call so that he can make an appointment with them. He is interested in remaining abstinent from alcohol, especially given his recent legal difficulties, although it is unclearif he has the willpower to do this. -He reported he does not have a place to stay tonight, so social work has arranged for a hotel for him to stay at. He says he has friends he can call,to arrange housing on a temporary basis, after that. He is strongly discouraged from any more drinking, and particularly drinking and driving. #2Chest pain- due to fall.: EKG trop, CXR neg, h/o trauma with obvious bruise, and tenderness to palpation, no need for further workup, conservative management. #3.Chr edema: on home diuretics. This is likely has more to do with nutrition than excess fluid. He needs to remain off alcohol, and work on eating a more balanced diet. #4.Hypomagnesemia: Replaced. #5 DVT prophylaxis: Subcutaneous heparin was used. Diet Regular #6.Code status: full code. #7. Chronic anemia P he should follow up with his primary care physician to be sure he is [id number] colon cancer screening. 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 38. GI. LFTs have been mildly elevated during his stay, likely due to alcoholic hepatitis. This will need follow-up with his primary care physician. this visit took approximately 40 minutes today, to review the patient's labs and other test results, interview and examine him, reviewing his chart,review plan of care with nursing staff, and then discuss disposition plans and need for housing. Discharge diagnosis: acute alcohol withdrawal, alcoholic hepatitis chronic anemia - Time Spent with Patient Total time spent providing and/or coordinating discharge services: Greater than 30 minutes Medical - DS: Exam - Constitutional Vitals: Vital Signs Temp Pulse Resp BP BP Pulse Ox 11/10/16 11:51 98.3 F 18 146/87 95 11/10/16 07:21 98.4 F 16 129/75 97 11/10/16 02:59 99.6 F H 93 H 16 140/86 99 11/09/16 23:37 97.7 F 96 H 14 145/79 96 11/09/16 20:00 98.5 F 95 H 18 150/87 98 11/09/16 15:26 97.3 F 18 144/79 99 Intake and Output 11/10/16 11/10/16 11/10/16 05:59 13:59 21:59 Intake Total 1280 / 1280 Balance 1280 / 1280 Intake: Oral 1280 / 1280 Other: Meal Breakfast Percent of Meal Consumed 100% Feeding Ability Independent # Voids 1 1 # Bowel Movements 1 1 Medical - DS: Data Labs on day of discharge: Labs from last 24 hours 11/10/16 11/10/16 05:20 05:20 WBC 6.2 RBC 3.22 L Hgb 10.9 L Hct 32.0 L MCV 99.4 MCH 33.7 MCHC 33.9 RDW 14.8 H Plt Count 151 MPV 9.2 Gran % 66.5 Lymph % (Auto) 16.1 [place] % (Auto) 13.5 H Eos % (Auto) 3.0 Baso % (Auto) 0.9 Gran # 4.1 Lymph # 1.0 L [place] # 0.8 Eos # 0.2 Baso # 0.1 Sodium 137 Potassium 3.5 Chloride 102 Carbon Dioxide 24 Anion Gap 11.0 BUN 16 Creatinine 0.7 GFR Calculation 105 Glucose 97 Uric Acid 4.4 Calcium 8.3 L Phosphorus 3.1 Magnesium 1.6 Total Bilirubin 0.6 Direct Bilirubin < 0.2 GGT 101 H AST 47 H ALT 46 H Alkaline Phosphatase 51 Lactate Dehydrogenase 197 Total Protein 5.8 L Albumin 3.5 Globulin 2.3 Albumin/Globulin Ratio 1.5 Triglycerides 47 tox screen on admission: Must suspect positive for benzodiazepines and otherwise negative. MRSA screen was negative. eKG shows sinus tachycardia at a rate of 114, with LVH. chest x-ray: Was read as normal. Medical - DS: A/P - Patient/Caregiver Discharge Instructions Activity: increase activity as tolerated Diet: Regular Diet Additional Instructions: #1. Please AVOID all alcohol . #2. Please call behavioral health [facility] to make follow-up appointment. Please go to AA meetings at least 3 days a week. -Please take a multivitamin every day to replace some of the vitamins you have lost while drinking. Please try to eat a well-balanced meal at least twice a day. -You were given a prescription for a small number of lorazepam pills. These can be used sparingly if he continues to have withdrawal symptoms, such as severe tremor, sweats, elevated blood pressure. Do not drive while taking this medication. Prescriptions: LORazepam [Ativan] 0.5 mg PO Q4HP PRN #20 tablet PRN Reason: Alcohol Withdrawal Multivit,Ther Iron,Ca,FA & Min [Multivitamin W/Minerals] 1 tab PO DAILY #30 tablet Thiamine [Vitamin B1] 1 cap PO DAILY #30 vial - Follow up Plan Follow up with: Meagan Pickering MD [Primary Care Provider] - (Call on Thursday for a hospital follow up with your primary care doctor in 7-10 days.) Disposition: Home, Self-Care Prognosis: Fair Rehab Potential: Good I certify that the patient requires SNF services: No Overall status at discharge: patient is progressing back to baseline Medical - DS: Qual - VTE Deep Vein Thrombosis/Pulmonary Embolism Present on Admission: No
== END 2016-11-10 16:20 | disposition home or self-care (01) | DRG 897 ==
LOC: ED 11:00 → ICU 16:25 → SUATTDRO 16:25 → ICU 16:30 → MEDSUR 11-09 13:40
PROVIDERS: ADMIT Internal Medicine; ATTEND Internal Medicine